=== PATIENT | female | born 1995 | race Caucasian/White ===

== ENCOUNTER 2019-03-24 15:55 | Emergency (ER) | payer MEDICAID ==
[~2019-03-24] VITALS: Ht 154.9 cm; Wt 38.0 kg
[2019-03-24 16:41] VITALS: BP 117/77
== END 2019-03-24 17:35 | disposition home or self-care (01) ==
LOC: ER 15:56
DX: F15.90 Other stimulant use, unspecified, uncomplicated (principal); F11.90 Opioid use, unspecified, uncomplicated
CPT/HCPCS: 99281

== ENCOUNTER 2019-05-01 08:21 | Emergency (ER) | payer MEDICAID ==
[~2019-05-01] VITALS: Ht 154.9 cm; Wt 44.6 kg
[2019-05-01] MEDS ORDERED: albuterol 2.5 MG/3 ML nebule NEB ONE (09:10)
[2019-05-01] MEDS ORDERED: BECL7.3A INH (09:11)
[2019-05-01] MEDS ORDERED: ALBU8HFA PO (09:11)
[2019-05-01 09:47] VITALS: BP 116/55
[2019-05-10] MEDS ORDERED: AMOX500C2 PO (08:40)
== END 2019-05-01 09:48 | disposition home or self-care (01) ==
LOC: ER 08:21
DX: J45.909 Unspecified asthma, uncomplicated (principal); F17.200 Nicotine dependence, unspecified, uncomplicated; F15.90 Other stimulant use, unspecified, uncomplicated; F11.90 Opioid use, unspecified, uncomplicated; Z98.890 Other specified postprocedural states
CPT/HCPCS: 94640; 99283

== ENCOUNTER 2019-05-26 10:01 | Emergency (ER) | payer MEDICAID ==
[~2019-05-26] VITALS: Ht 154.9 cm; Wt 45.7 kg
[~2019-05-26 10:01] MED LIST: ALBU8HFA PO; BECL7.3A INH
[2019-05-26 10:06] VITALS: BP 105/61
== END 2019-05-26 12:01 | disposition home or self-care (01) ==
LOC: ER 10:02
DX: J02.8 Acute pharyngitis due to other specified organisms (principal); B97.89 Other viral agents as the cause of diseases classified elsewhere; J45.909 Unspecified asthma, uncomplicated; F17.200 Nicotine dependence, unspecified, uncomplicated; F15.90 Other stimulant use, unspecified, uncomplicated; F11.90 Opioid use, unspecified, uncomplicated; Z79.899 Other long term (current) drug therapy; Z98.890 Other specified postprocedural states
CPT/HCPCS: 99281

== ENCOUNTER 2019-07-17 16:30 | Emergency (ER) | payer MEDICAID ==
[~2019-07-17] VITALS: Ht 154.9 cm; Wt 43.0 kg
[~2019-07-17 16:30] MED LIST changes: -ALBU8HFA PO
[2019-07-17 16:37] VITALS: BP 99/59
[2019-07-17] MEDS ORDERED: COROTSUS OT (16:56)
== END 2019-07-17 17:04 | disposition home or self-care (01) ==
LOC: ER 16:31
DX: T16.1XXA Foreign body in right ear, initial encounter (principal); H60.91 Unspecified otitis externa, right ear; J45.909 Unspecified asthma, uncomplicated; F15.90 Other stimulant use, unspecified, uncomplicated; F11.90 Opioid use, unspecified, uncomplicated; Z79.899 Other long term (current) drug therapy; Z98.890 Other specified postprocedural states; X58.XXXA Exposure to other specified factors, initial encounter; Y93.89 Activity, other specified; Y92.89 Other specified places as the place of occurrence of the external cause; Y99.8 Other external cause status
CPT/HCPCS: 99284